=== PATIENT | female | born 1945 | race Caucasian/White ===

== ENCOUNTER 2016-10-22 16:45 | Inpatient (IN) | payer MEDICARE, OTHER ==
--- NOTE | ~2016-10-22 | CN ---
Consultation Report [facility] [address] [place]. [address] NAME: JOSE GOODEN : 47 STATUS : ADM IN PAT#: [id number] AGE: 71 ADM/REG DATE : 10/22/16 MR#: [id number] REPORT SERV DATE: 10/24/16 DICTATED BY: GERMAIN PIMENTEL DATE: 10/24/16 REPORT STATUS : Draft TRANSCRIBED BY: MODL DATE: 10/24/16 CONSULTATION NOTE DATE OF CONSULTATION: 10/24/2016 ATTENDING MAIL FORWARDING SYSTEM MARKUP CLERK: Vic Powell M.D. REASON FOR CONSULTATION: Recent non-ST elevation myocardial infarction, three-vessel coronary artery disease. CHIEF COMPLAINT: Left shoulder and back pain. HISTORY OF PRESENT ILLNESS: This is a 71-year-old female with known prior history of nonobstructive coronary artery disease, she has had two prior coronary catheterizations. She has family history of coronary artery disease, and she is a diabetic, controlled by diet. She reports that on the evening of last , when going to bed, she experienced onset of aching or dull discomfort in her left shoulder and back in the scapula area. She had radiation of pain into her left arm. This was associated with shortness of breath and some nausea. She did not vomit, did not experience any diaphoresis. She has had no paroxysmal nocturnal dyspnea. On Monday night, she had recurrence of her symptoms and this again resolved without intervention. The pain lasted approximately 40 to 50 minutes each time. On Monday morning, she again had recurrent pain and initially the pain resolved and then she had recurrence of pain later in the morning. At that time, she called her daughter and went to the emergency department. There she was found to have abnormal EKG, elevated troponin I of 0.06. She was referred to [facility] for further evaluation and treatment. Today, she underwent coronary arteriogram by Dr. Koenig that showed three-vessel flow- limiting coronary artery disease with wall motion abnormality and decreased left ventricular function, ejection fraction 40%. We were asked to see for possible coronary artery bypass grafting. She did experience some pain this morning just prior to her cath, this was relieved and she has had no recurrence since. Currently, she is pain free in the Cardiac Short Stay Unit. PRIOR MEDICAL HISTORY: Significant for hypertension, coronary artery disease, Parkinson disease, type 2 diabetes mellitus which is controlled by diet, lower extremity edema, prior MRSA infection. PRIOR SURGICAL HISTORY: Significant for hysterectomy. ALLERGIES: NONE KNOWN. MEDICATIONS AT HOME: Sinemet, Mirapex, atenolol, aspirin, amiloride/hydrochlorothiazide Consultation Report [facility] [address] [place]. [address] NAME: JOSE GOODEN : 47 STATUS : ADM IN PAT#: [id number] AGE: 71 ADM/REG DATE : 10/22/16 MR#: [id number] REPORT SERV DATE: 10/24/16 DICTATED BY: GERMAIN PIMENTEL DATE: 10/24/16 REPORT STATUS : Draft TRANSCRIBED BY: KARLOS DATE: 10/24/16 daily. 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 She denies the use of tobacco, alcohol, or illicit drugs. She does occasionally have a glass of wine. FAMILY HISTORY: Significant for first-degree family members with coronary artery disease and heart attack. REVIEW OF SYSTEMS: GENERAL: Negative for any recent weight loss, fevers, chills, or night sweats. She does report easy fatigability over the last one year. HEENT: Significant for cataracts, wearing glasses. She denies any difficulty with teeth with eating, chewing, or swallowing. No difficulty hearing. RESPIRATORY: Positive for shortness of breath. No breathlessness with exertion of walking. Denies any hemoptysis. Denies wheezes or chronic cough. No lung problems. CV: Positive for history of palpitations, previous coronary cath and recent chest pain. She denies any syncope or near syncope. She denies any heart failure. Denies abnormal heart rhythm or heart murmur. GI: Negative. : Negative. MUSCULOSKELETAL: Positive for pain in the right leg. Also walks with a cane. NEURO: Positive for Parkinson. Negative for stroke or TIA symptoms. Negative for symptoms of amaurosis fugax. HEME/ONC: Negative. Denies any easy bruising, free bleeding, or blood clots. No history of cancer. ENDOCRINE: Negative for thyroid problems, positive for diabetes which also occurs in her family. Otherwise, negative or as above. PHYSICAL EXAMINATION: GENERAL: She is a pleasant obese white female, in no acute distress. Her weight is 106.76 kg, height is 165.1 cm. VITAL SIGNS: Blood pressure is 147/67, temperature 97.6, pulse 81 and regular, respirations 18 regular and unlabored, saturations 95% on room air. HEENT: Normocephalic, atraumatic. Hair is graying. Pupils equal, round, reactive to light and accommodation. No xanthelasma. Sclerae clear, conjunctivae pink. Oral buccal mucosa pink and moist, teeth in good condition. NECK: Supple. No restricted range of motion, no carotid bruits, no jugular venous distention. CHEST: Clear to auscultation, no use of accessory muscles, no chest wall tenderness or deformity. BREASTS: Not examined. CV: Regular rate and rhythm without murmur or rub. She has palpable and symmetric central and peripheral pulses, no clubbing, no cyanosis, 1 to 2+ pitting edema of the lower extremities to the knees. She has no lower extremity varicosities seen. Consultation Report [address] [place]. [address] NAME: JOSE GOODEN : 47 STATUS : ADM IN [facility]#: [id number] AGE: 71 ADM/REG DATE : 10/22/16 MR#: [id number] REPORT SERV DATE: 10/24/16 DICTATED BY: GERMAIN PIMENTEL DATE: 10/24/16 REPORT STATUS : Draft TRANSCRIBED BY: KARLOS DATE: 10/24/16 ABDOMEN: Soft, obese, nontender with normoactive bowel sounds. No abnormal pulsations. No hepatosplenomegaly. /RECTAL: Declined. MUSCULOSKELETAL: No kyphoscoliosis. No asymmetry. NEURO: She is alert, oriented, and appropriate. No focal neurologic deficits, speech is clear and fluent. SKIN, HAIR, NAILS: No lesions, masses, or rashes. DATA: Her coronary arteriogram today showing diminished left ventricular function with ejection fraction 40%, three-vessel coronary artery disease as characterized in the cath report. Echocardiogram and carotid ultrasound are currently pending. Her EKG shows sinus rhythm with changes in the anteroseptal leads consistent with ischemia. Her lipid profile is unremarkable. Electrolytes: Sodium 136, potassium 3.9, chloride 103, CO2 of 28, BUN 28, creatinine 1.01. INR is 1. Troponin I was 0.06. Her CBC shows WBC is 8.2, hemoglobin 12.5 g, hematocrit 37.1%, platelets 229,000. ASSESSMENT: Recent acute anteroseptal myocardial infarction in a pleasant 71-year-old obese white female, diabetic. We talked with her and her family today about possible coronary artery bypass grafting, indications, benefits, risks, and usual perioperative course. We talked about pain, infection, pneumonia, damage to the kidneys including kidney failure and dialysis, damage to the liver or lungs, bleeding, need for blood or blood product transfusion, deep sternal infection, mediastinitis, heart attack, stroke, abnormal heart rhythm, and even . Using Society of Thoracic Surgeons database for risk characterization, her risk of mortality was estimated 1.755%, morbidity or mortality 14.917%, this was shared with the patient and family today. Currently, she is pain free. Our plan is to proceed with coronary artery bypass grafting later this admission, if she has recurrent pain unrelieved, then we will proceed with emergent coronary artery bypass grafting. We appreciate very much the opportunity to participate in this pleasant lady's care. ELLYN/KARLOS Germain Pimentel N.P. / [id number] CC: Annalee Barajas M.D.
--- NOTE | ~2016-10-22 | OP ---
Record Of [address] [place]. [address] NAME: JOSE GOODEN : 47 STATUS : DIS IN PAT#: [id number] AGE: 71 ADM/REG DATE : 10/22/16 MR#: [id number] REPORT SERV DATE: 11/04/16 DICTATED BY: JOSE EDUARDO DAVENPORT DATE: 11/04/16 REPORT STATUS : Draft TRANSCRIBED BY: MODL DATE: 11/04/16 DATE OF PROCEDURE: 10/25/2016 PREOPERATIVE DIAGNOSES: 1. Coronary artery disease with ijs-BN-azcibtyei myocardial infarction. 2. Unstable angina. 3. Type 2 vlu-qfuexwa-yjbljuwgt diabetes mellitus. 4. Morbid obesity. 5. Hypertension. 6. Hyperlipidemia. 7. Parkinson disease. 8. Acute systolic congestive heart failure (ejection fraction 40% on cardiac catheterization). POSTOPERATIVE DIAGNOSES: 1. Coronary artery disease with wvv-LT-hcrsqqphl myocardial infarction. 2. Unstable angina. 3. Type 2 epo-wzmbbyc-zstusqtlm diabetes mellitus. 4. Morbid obesity. 5. Hypertension. 6. Hyperlipidemia. 7. Parkinson disease. 8. Acute systolic congestive heart failure (ejection fraction 40% on cardiac catheterization). PROCEDURES PERFORMED: 1. Urgent coronary artery bypass grafting x3, left internal mammary artery placed to left anterior descending, reverse saphenous vein graft placed to the third obtuse marginal, reverse saphenous vein graft placed to the posterior descending artery. 2. Endoscopic vein harvest of the saphenous vein from the right thigh. 3. Transesophageal echocardiography. SURGEON: Jose Eduardo Davenport M.D. ASSISTANTS: Devika Pederson and Xavi Frias. ANESTHESIA: General with Dr. Thompson. ASPHALT HEATER OPERATOR: Vic Powell M.D. PRIMARY CARE: Ryan Madera M.D. INDICATIONS: This is a 71-year-old obese, diabetic female with previously known nonobstructive coronary artery disease. She had sudden onset of shoulder and scapular pain several days prior to her admission. These initially resolved and then repeated on the day of her admission. She came to the emergency room, was diagnosed with EKG changes, and was Record Of [address] [place]. [address] NAME: JOSE GOODEN : 47 STATUS : DIS IN PAT#: [id number] AGE: 71 ADM/REG DATE : 10/22/16 MR#: [id number] REPORT SERV DATE: 11/04/16 DICTATED BY: JOSE EDUARDO DAVENPORT DATE: 11/04/16 REPORT STATUS : Draft TRANSCRIBED BY: MODAinsley DATE: 11/04/16 admitted to the hospital with mildly elevated troponins and diagnosed with a non-ST- elevation myocardial infarction. She was treated initially medically and then underwent cardiac catheterization, which demonstrated significant three-vessel coronary artery disease and reduced ventricular function on cardiac catheterization. We were asked to see the patient for possible urgent revascularization secondary to recent non-ST elevation GA and unstable anginal symptoms. Preoperative STS risk prediction of mortality is 1.8% and morbidity mortality were 15%, and these were shared with the family. FINDINGS AT OPERATION: 1. Cross-clamp 57 minutes, total pump time 72 minutes. 2. The LAD was a 2 mm intramyocardial vessel, it was mildly diseased. A 2.5 mm WHALEN was anastomosed to it with good runoff. 3. The third obtuse marginal was 1.5 mm and heavily diseased. A 4.5 mm RSVG was anastomosed to it with fair runoff. 4. The posterior descending artery was 1.75 mm and heavily diseased. A 4.5 mm RSVG was anastomosed to it with good runoff. 5. The vein quality was good and all grafts had good Doppler signal at the end of the case. 6. GEOFF demonstrated improved left ventricular function at the conclusion of operation. There was no significant valvular pathology. 7. Morbid obesity made the operation challenging. PATHOLOGIC SPECIMENS: None. DESCRIPTION OF PROCEDURE: The patient was brought to the operating suite where general anesthesia was induced and airway was secured with an endotracheal tube. Lines were secured by Anesthesia and a Hidalgo catheter was placed. GEOFF probe was placed by Anesthesia with findings as discussed above. The patient's chest, abdomen, groin, and legs were prepped with Hibiclens and ChloraPrep and draped with Ioban and sterile sheets. Saphenous vein was harvested from the right thigh using endoscopic technique. Briefly, the vein was cut directly down upon through a 2 cm incision placed in the medial aspect of the right knee. Then, using VasoView trocars, the vessel was dissected from the surrounding subcutaneous tissue and fat. The side branches were identified, ligated, and divided with cautery. Once adequate length of vein had been dissected, a counter incision made up in the groin where the vein was ligated, divided, and brought through the knee incision. The vein quality was good. The leg was made hemostatic and closed in layers with absorbable suture and skin closed in subcuticular fashion. Next, a midline sternal incision was made and the sternum opened with a saw. The left hemithorax was elevated and the endothoracic fascia was incised. The side branch of the PRECIOUS were clipped and divided. Once the PRECIOUS was completely dissected, the patient was anticoagulated with heparin and chest tube placed in the left pleural cavity. The PRECIOUS was clipped and divided distally. There was good flow through the PRECIOUS and its pedicle was infiltrated with papaverine. Next, the Brian retractor was placed in the pericardium opened from the innominate vein at the diaphragm where it was T'd and tacked to the side of the chest wall. Cannulation Record Of [facility] [address] [facility] [place]. [address] NAME: JOSE GOODEN : 47 STATUS : DIS IN PAT#: [id number] AGE: 71 ADM/REG DATE : 10/22/16 MR#: [id number] REPORT SERV DATE: 11/04/16 DICTATED BY: JOSE EDUARDO DAVENPORT DATE: 11/04/16 REPORT STATUS : Draft TRANSCRIBED BY: KARLOS DATE: 11/04/16 pursestring sutures were placed. Cannulation was carried out in a routine manner. A retrograde cardioplegia cannula was placed in the coronary sinus. When all was in readiness, the patient was placed on cardiopulmonary bypass. The distal targets marked out on the heart as described in the findings. Then, a heart support was placed. The aorta was crossclamped and an initial dose of cold blood cardioplegia solution was given in a combination of antegrade and retrograde fashion, and then in a retrograde manner following proximal anastomoses. Following the first dose of cardioplegia, the heart was positioned for the obtuse marginal graft. Arteriotomy was made, the vein graft was trimmed and anastomosed it with 7-0 Prolene. The vein graft was measured to the left side of the ascending aorta where it was divided. We then positioned the heart for the PDA graft. Another arteriotomy was made and the vein graft was trimmed and anastomosed to this vessel with 7-0 Prolene. This vein graft was then measured to the right side of the ascending aorta where it was divided. Next, the proximal ends of these two vein grafts were anastomosed to 5 mm punch aortotomy with 6-0 Prolene. Another dose of cardioplegia was given and warming was begun. We then positioned the heart for the LAD graft. The LAD was intramyocardial. The LAD was opened in its mid vessel. The PRECIOUS was brought out of the left chest through a notch in the pericardium over the pulmonary artery. The PRECIOUS was opened and anastomosed to the LAD with running suture of 8-0 Prolene. The endothoracic fascia was tacked to the epicardium. The patient was placed in Trendelenburg and final dose of warm blood cardioplegia was given in a retrograde fashion. Ventricular and atrial pacing wires were placed. Following the last dose of cardioplegia and deairing of the aorta, the aortic cross clamp was removed. The distal and proximal anastomoses were inspected and made hemostatic. Doppler demonstrated good flow through the grafts. The heart resumed a normal sinus rhythm spontaneously and ventilations were begun. When the heart demonstrated good contractility, it was allowed to fill and eject. When deairing was completed, the patient was taken out of Trendelenburg and the ascending aortic vent removed and these pursestring sutures tied and reinforced. The patient was weaned from cardiopulmonary bypass with minimal inotropic support. The venous cannula was removed and these pursestring sutures tied. GEOFF examination demonstrated improved ventricular function. No valvular pathology was noted. Protamine was administered by Anesthesia, and following a period of hemodynamic stability, the aortic cannula was removed and these pursestring sutures tied and reinforced. The patient continued to do well and chest irrigated copiously with saline. Meticulous hemostasis was obtained. Hemasorb was placed along the cut edge of the sternum. Once hemostasis was assured, the pericardium was draped over the anterior surface of the heart and tacked into position. Doppler demonstrated good flow through the grafts following protamine administration. Then, chest tubes were placed and the sternum reapproximated with eight sternal wires. The clavipectoral fascia and linea alba closed with Stratafix as was subcutaneous tissue. The skin was closed in subcuticular fashion. Record Of Operation [facility] [address] [place]. [address] NAME: JOSE GOODEN : 47 STATUS : DIS IN PAT#: [id number] AGE: 71 ADM/REG DATE : 10/22/16 MR#: [id number] REPORT SERV DATE: 11/04/16 DICTATED BY: JOSE EDUARDO DAVENPORT DATE: 11/04/16 REPORT STATUS : Draft TRANSCRIBED BY: MODL DATE: 11/04/16 The patient tolerated the procedure well. There were no complications. Sponge and needle counts were correct. DISPOSITION: The patient was left intubated, sedated, and transported to the intensive care unit in a stable condition. RUIZ/KARLOS Jose Eduardo Davenport M.D. / [id number] CC: Annalee Barajas M.D.
--- NOTE | ~2016-10-22 | HP ---
History And Physical [place] [id number] [facility] [place]. [address] NAME: JOSE GOODEN : 47 STATUS : ADM IN [facility]#: [id number] AGE: 71 ADM/REG DATE : 10/22/16 MR#: [id number] REPORT SERV DATE: 10/23/16 DICTATED BY: VIC POWELL DATE: 10/22/16 REPORT STATUS : Draft TRANSCRIBED BY: MODL DATE: 10/22/16 DATE OF ADMISSION: 10/22/2016 ADMISSION REASON: Acute coronary syndrome/mvb-FP-tzhpqbvjm myocardial infarction. HISTORY OF PRESENT ILLNESS: Ms. Gooden is a 71-year-old female with hypertension and Parkinson disease who presented to the [facility] ER today for substernal chest pressure with symptoms of vague nausea and dyspnea. On arrival there, her EKG showed sinus rhythm with new inferolateral ST-segment depression and initial troponin was abnormal at 0.06. She was started on IV heparin and given aspirin, nitroglycerin, made symptom free. Symptoms persisted for approximately 45 minutes prior to arrival there. Before that, she has had 2 to 3 days of vague left shoulder/scapular pain that sound more musculoskeletal with exacerbation on certain movements. She is now resting comfortably. She has had no palpitations or syncope. She denies orthopnea/PND. She does have some chronic intermittent lower extremity edema. REVIEW OF SYSTEMS: Pertinent positives and negatives are as outlined above, all others negative. PAST MEDICAL HISTORY: 1. Hypertension. 2. Diabetes mellitus type 2, diet controlled. 3. Intermittent lower extremity edema. 4. Parkinson disease. CURRENT MEDICATIONS: 1. Sinemet as directed. 2. Mirapex 1 mg three times daily. 3. Atenolol 100 mg daily. 4. Aspirin 325 mg daily. 5. Amiloride/HCTZ 5/50 mg daily. ALLERGIES: NO KNOWN DRUG ALLERGIES. SOCIAL HISTORY: She is retired. Does not use tobacco products or consume alcohol. FAMILY HISTORY: No significant family history of premature CAD, cardiomyopathy, or sudden . PHYSICAL EXAMINATION: VITALS: Temp is afebrile, pulse is 70, respirations 16, and blood pressure is 150/90. MENTAL STATUS: Awake, alert, and oriented x3. PSYCH: Euthymic, normal affect. GENERAL: Well appearing and in no distress. HEENT: Sclerae anicteric, mucous membranes moist and without lesions. NECK: No jugular venous distention. No hepatojugular reflux, carotid upstrokes 2+ and History And Physical [address] [address] NAME: JOSE GOODEN : 47 STATUS : ADM IN PAT#: [id number] AGE: 71 ADM/REG DATE : 10/22/16 MR#: [id number] REPORT SERV DATE: 10/23/16 DICTATED BY: VIC POWELL. DATE: 10/22/16 REPORT STATUS : Draft TRANSCRIBED BY: KARLOS DATE: 10/22/16 symmetric, there are no carotid or subclavian bruit. LUNGS: Clear to auscultation without wheezes, crackles, or rales. CARDIOVASCULAR: Regular with normal S1 and S2, no murmurs, no S3 or S4, no parasternal lift, PMI is nondisplaced and nonsustained. ABDOMEN: Soft and nontender. Bowel sounds positive and normoactive. No hepatomegaly, no masses, no abdominal bruit. PULSES: Radial and dorsalis pedis pulses 2+ and symmetric. EXTREMITIES: Warm and without edema. SKIN: No clubbing or cyanosis, no rashes or lesions. IMPRESSION: 1. Non-ST segment elevation myocardial infarction. 2. Hypertension. 3. Diabetes mellitus type 2. 4. Lower extremity edema. 5. Parkinson disease. PLAN: Heparin and aspirin with medical therapy including beta brown, statin, nitroglycerin. Check serial troponins. Check a.m. ECG and a.m. labs. Anticipate coronary angiography with possible PCI on Monday. We will prescribe sliding scale insulin and IV hydralazine p.r.n. for hypertension. AEA/MODL Vic Powell M.D. / [id number] CC: Vic Powell M.D.
--- NOTE | ~2016-10-22 | DS ---
Discharge Summary [facility] [address] [place]. [address] NAME: JOSE GOODEN : 47 STATUS : DIS IN PAT#: [id number] AGE: 71 ADM/REG DATE : 10/22/16 MR#: [id number] REPORT SERV DATE: 11/10/16 DICTATED BY: JOSE EDUARDO DAVENPORT DATE: 11/09/16 REPORT STATUS : Draft TRANSCRIBED BY: KARLOS DATE: 11/09/16 Data Collection from hospitalization DISCHARGE DIAGNOSES: 1. Non-ST elevation myocardial infarction. 2. Coronary artery disease, status post coronary artery bypass grafting. 3. Parkinson disease. 4. Hypertension. 5. Hyperlipidemia. 6. Diabetes mellitus. 7. Previous history of MRSA infection. CONSULTATIONS: 1. Ivonne Moreno NP. 2. Vic Powell M.D. PROCEDURES PERFORMED: 1. Cardiac catheterization on 10/24/2016. 2. Urgent coronary artery bypass grafting x3 with left internal mammary artery to the left anterior descending artery, reverse saphenous vein graft placed to the third obtuse marginal, reverse saphenous vein graft placed to the posterior descending artery; endoscopic vein harvest of the saphenous vein from the right thigh; and transesophageal echocardiography on 10/25/2016. 3. Carotid blood flow study on 10/24/2016. MEDICATIONS: Vitamin C 1000 mg twice a day, aspirin 325 mg as needed, Lipitor 40 mg at bedtime, Sinemet CR one tablet three times a day, Plavix 75 mg daily, Lasix 40 mg at 8:00 a.m. daily as instructed, NovoLog injection insulin as instructed, Lopressor 25 mg every 12 hours, potassium chloride SR 20 mEq daily, Mirapex 1 mg three times a day, Senokot two tablets twice a day, Orazinc 220 mg daily, and lisinopril 2.5 mg at bedtime. CONDITION AT DISCHARGE: Stable. DISPOSITION: The patient was discharged to [facility] with diet and activities as instructed. She would follow up with Germain Justin on 12/29/[address] Vic Powell on 12/06/2016. HOSPITAL COURSE: This is a 71-year-old female who has hypertension and Parkinson disease. She presented to the [facility] Emergency Room on the day of this admission with substernal chest pressure with symptoms of vague nausea and dyspnea. Upon arrival there, her EKG showed sinus rhythm with new inferolateral ST-segment depression and initial troponin was abnormal at 0.06. She was started on IV heparin and given aspirin and nitroglycerin and was made symptom free. Her symptoms persisted for approximately 45 minutes prior to arrival there, before that, she has had two to three days of vague left shoulder/scapular pain that sounded more musculoskeletal with exacerbation on certain movements. She was now resting comfortably. She had no palpitations or syncope. She does have some chronic intermittent lower extremity edema. She was felt to have had a non-ST- segment elevation myocardial infarction. It was felt that she would need to undergo cardiac Discharge Summary [address] [place]. [address] NAME: JOSE GOODEN : 47 STATUS : DIS IN [facility]#: [id number] AGE: 71 ADM/REG DATE : 10/22/16 MR#: [id number] REPORT SERV DATE: 11/10/16 DICTATED BY: JOSE EDUARDO DAVENPORT DATE: 11/09/16 REPORT STATUS : Draft TRANSCRIBED BY: KARLOS DATE: 11/09/16 catheterization and possible percutaneous coronary intervention. She was admitted here at this time for further evaluation and treatment. Upon admission, she was seen by Dr. Vic Powell. Plans were being made to proceed with coronary angiography and possible percutaneous coronary intervention. The patient has a history of type 2 diabetes mellitus, Parkinson disease, hypertension, and chronic lower extremity edema. Heparin and aspirin were started with medical therapy including beta- brown, statin, and nitroglycerin. Serial troponins were going to be checked as well as a morning ECG and a.m. labs. Sliding scale insulin was going to be started as well as IV hydralazine as needed for hypertension. The following day, she seemed to be doing well. She had no chest pain or shortness of breath. She had 1+ edema. Medical therapy continued. Statin agent was changed to pravastatin. She was going to be held n.p.o. after midnight. On 10/24/2016, she complained of muscle cramps and spasms. She had no shortness of breath or chest pain. A dose of Lasix was given. Flexeril was given for muscle spasms. 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 Maninder Koenig. She tolerated this well, and there were no complications. She was seen by Germain Justin regarding recent ayh-CW-nfrprsrfe myocardial infarction and three-vessel coronary artery disease. Her coronary arteriogram had shown three-vessel flow-limiting coronary artery disease with wall motion abnormality and decreased left ventricular function. Ejection fraction was 40%. It was felt that she would need to undergo coronary artery bypass grafting. A carotid blood flow study was performed. On 10/25/2016, she was taken to the operating room where she underwent the above-mentioned procedure. She tolerated this well, and there were no complications. On postop day #1, she had decreased breath sounds in her lung bases. She developed some leukocytosis as expected. Oral liquids were increased. INR level was 1.2. Troponin was 11.2. White blood cell count was 20. The patient says that her diabetes is diet controlled at home. She does not take any oral medications or insulin for her diabetes. Hemoglobin A1c was going to be checked. Her last hemoglobin A1c was 6.7. The insulin drip would be discontinued two hours after initiating Levemir. She would be placed on level 2 sliding scale insulin with hypoglycemic protocol. Sinemet and Mirapex were continued. The patient was also on aspirin, Cordarone, Lopressor, Plavix, and Lasix. Lipitor was continued for hypercholesterolemia. Medical therapy continued. Diuresis was continued. She was evaluated by Physical Therapy. On 10/27/2016, her abdomen was soft and nontender. Pacing wires and chest tubes were going to be removed. She was encouraged to mobilize. Diuresis continued. White count was 23.5. She was up sitting in a chair. She was beginning to participate with Physical Therapy. Metoprolol was increased. Over the next couple of days, she still felt weak. She had 1 to 2+ pitting edema from her feet to her knees. Her incisions looked okay. She was beginning to ambulate in the halls with a walker. Discharge planning was performed. Lasix was decreased. She underwent diabetes education. On 10/29/2016, she continued to progress. Discharge instructions were given. Due to her improved and stable condition, she was discharged to [facility] with the above- stated instructions. Information collected by: Yee Lowe I submit the above information as my discharge summary. Discharge Summary [facility] [address] [place]. [address] NAME: JOSE GOODEN : 47 STATUS : DIS IN PAT#: [id number] AGE: 71 ADM/REG DATE : 10/22/16 MR#: [id number] REPORT SERV DATE: 11/10/16 DICTATED BY: JOSE EDUARDO DAVENPORT DATE: 11/09/16 REPORT STATUS : Draft TRANSCRIBED BY: KARLOS DATE: 11/09/16 TG/KARLOS Jose Eduardo Davenport M.D. / [id number] CC: Annalee Barajas M.D. [facility]
--- NOTE | ~2016-10-22 | CN ---
Consultation Report [facility] [address] [place]. [address] NAME: JOSE GOODEN : 47 STATUS : ADM IN PAT#: [id number] AGE: 71 ADM/REG DATE : 10/22/16 MR#: [id number] REPORT SERV DATE: 10/27/16 DICTATED BY: IVONNE NAVA DATE: 10/26/16 REPORT STATUS : Draft TRANSCRIBED BY: MODL DATE: 10/26/16 CONSULTATION DATE OF CONSULTATION: 10/26/2016 REASON FOR CONSULTATION: Consulted for diabetes management. IDENTIFYING DATA: 1. Neurologist, Jay Cano M.D. 2. Electrical Prospecting Observer, Vic Powell M.D. 3. Cardiovascular surgeon, Rajat Davenport M.D. 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 She also had radiation into her left arm. This was associated with shortness of breath and some nausea. Upon admission to the [facility], she was found to have an abnormal EKG and elevated troponin I of 0.06. She underwent coronary arteriogram by Dr. Koenig that showed a three-vessel flow-limiting coronary artery disease with wall motion abnormality and a decreased left ventricular function with an EF of 40%. She is presently status post CABG x3 with WHALEN on 10/25/[address] Davenport. The hospitalist group has been consulted to help manage her blood sugars while she is inpatient status. The patient's history was obtained through careful interview with the patient and her family as well as review of [employer] and [employer]. PAST MEDICAL HISTORY: 1. Parkinson's disease. 2. Hypertension. 3. High cholesterol. 4. Irregular heart rhythm. 5. Diabetes type 2, diet controlled. 6. MRSA infection of the leg and groin area. 7. Intermittent lower extremity edema. 8. The patient's son states she has history of night terrors. HOME MEDICATIONS: 1. Amiloride/hydrochlorothiazide 5/50 tablet one tab p.o. daily. 2. Aspirin 325 mg p.o. 3. Tenormin 100 mg p.o. daily. 4. Sinemet CR 50/200 mg tablet one tab p.o. three times daily. 5. Mirapex 1 mg p.o. three times daily. Consultation Report [place] [address] [place]. [address] NAME: JOSE GOODEN : 47 STATUS : ADM IN PAT#: [id number] AGE: 71 ADM/REG DATE : 10/22/16 MR#: [id number] REPORT SERV DATE: 10/27/16 DICTATED BY: IVONNE NAVA DATE: 10/26/16 REPORT STATUS : Draft TRANSCRIBED BY: KARLOS DATE: 10/26/16 ALLERGIES: NO KNOWN ALLERGIES. SOCIAL HISTORY: The patient is . Has grown children. She lives with her son and [id number] at a single-level home. She utilizes a cane occasionally for ambulation. Previously worked at [employer] in [employer] and also in [employer]. She does not smoke or use illicit medications and does have an occasional glass of wine. FAMILY HISTORY: Positive in first-degree relatives of coronary artery disease and [place] on her father's side. Her mother's side is positive in relatives for CVA. Her mother had Parkinson's disease and her father had coronary artery disease. SURGICAL HISTORY: 1. Cyst removal approximately 50 years ago. 2. Cholecystectomy. 3. Hysterectomy approximately 34 years ago. 4. Cardiac [place] [address] Rosemarie Snider. REVIEW OF SYSTEMS: Are negative other than what is included in HPI. The patient is alert. She is confused at the present time. No complaints of shortness of breath. No nausea or vomiting. No abdominal pain. No chest pain. No fever. Displays no agitation. Her family is at bedside. PHYSICAL EXAMINATION: VITAL SIGNS: From today, blood pressure 128/58, respiratory rate 16, heart rate 85, temperature 97.8, O2 saturation 94% on 2 L nasal cannula. GENERAL: This is a very pleasant, but scared-appearing, and relates that she is scared presently, female. She is resting in bed. NEURO: Her head is atraumatic, normocephalic. She is alert. Can answer questions appropriately, but is confused. Her cranial nerves are intact. Her mood is pleasant and appropriate, but she is tearful at times. NECK: Supple. Trachea is midline. No JVD noted. No obvious thyromegaly or lymphadenopathy. She does have an old dressing, where her right IJ catheter previously was inserted. EENT: Her sclerae are nonicteric. Pupils are equal and reactive to light. Her nares are patent. Mucous membranes moist. Tongue is midline without deviation. Soft palate rises equally with phonation. CHEST: The patient has a midline sternotomy with dressing intact. Her chest tube is wide to atrium. Chest tube device at bedside at -20 cm of suction. She does have pacing wires taped beneath dressing. LUNGS: Clear to auscultation bilaterally. She has normal respiratory effort. She is diminished in the bases. She has no increased work of breathing with conversation. She is encouraged to use incentive spirometer, as her x-ray from today has noted low lung volumes and atelectasis. CARDIOVASCULAR: S1, S2. She is on telemetry. Her rhythm is regular. Noted a sinus rhythm Consultation Report [address] [place]. [address] NAME: JOSE GOODEN : 47 STATUS : ADM IN [facility]#: [id number] AGE: 71 ADM/REG DATE : 10/22/16 MR#: [id number] REPORT SERV DATE: 10/27/16 DICTATED BY: IVONNE NAVA DATE: 10/26/16 REPORT STATUS : Draft TRANSCRIBED BY: KARLOS DATE: 10/26/16 with a rate of 92. ABDOMEN: Soft, nontender. She has active bowel sounds. No palpable organomegaly. Last bowel movement was noted on 10/24/2016. EXTREMITIES: Normal distal pulses. No calf tenderness. She does have bilateral lower extremity edema. SKIN: Warm and dry. No unusual rashes or lesions. Normal color and turgor for age. PSYCH: The patient is slightly anxious, tearful. She is cooperative and nervous. She is asking her family not to leave her presently. SURGICAL WOUND SITE: Her dressings are clean, dry, and intact. She does have an Buddy wrap to her right lower extremity and she has a MUKUL hose to her left lower extremity. LABORATORY DATA: Sodium 149, potassium 4.4, chloride 115, BUN 19, creatinine 1.12, GFR 58, glucose 101, calcium 9.0, magnesium 2.2. White blood cell 20.0, hemoglobin 11.8, hematocrit 35.3, platelets 183. INR 1.2. Troponin 11.20 postsurgery for CABG. On 10/26/2016, she had a chest x-ray that showed low lung volumes bilaterally, perihilar and bibasilar atelectasis. Mild venous congestion, status post CABG. Prior to her open heart surgery, she had a coronary arteriogram with Dr. Koenig that showed a three-vessel coronary artery disease with wall motion abnormality and decreased left ventricular function with an EF of 40%. ASSESSMENT/PLAN: 1. Diabetes type 2. The patient states that she is on a diet-controlled regimen at home for her diabetes. She is not taking any p.o. medications nor insulin for diabetes. Her blood sugar, she states, usually runs between 115 to 125 daily when she checks her blood sugar in the morning at home. Her hemoglobin A1c in hospitalization at present time is 6.7. She is on an insulin drip. She is 36 units in the last 12 hours. Her present blood sugar is 137. Her average blood sugar on 3 units an hour has been 110 to 130. We will utilize a community educator for education and appropriate monitoring for blood glucose at home. She is already on an 1800-calorie cardiac diet. We will discontinue the insulin drip two hours after initiating Levemir 10 mg subcu and with her eating dinner presently, she will be placed on a sliding scale level 2 with a hypoglycemic protocol. We will also check a fingerstick blood sugar at 2 a.m. x1. We are going to be somewhat conservative with this lady on her blood sugars presently. She is eating, but not a lot and she has not been on any medications nor insulin at home. Staff can call if her blood sugars become elevated and we can tweak her blood sugar regimen. 2. Parkinson's disease. Aware. She is on Sinemet daily as well as Mirapex, which is continued. 3. Hypertension. She is status post CABG x3 with use of WHALEN. Her EF is noted at 40% and she has had a previous cardiac [place] [address] Rosemarie Snider. Medications continued and managed per Cardiology, for which she is on aspirin, Cordarone, lopressor, Plavix, and Lasix. 4. Hypercholesterolemia. Aware. She is on a daily regimen of Lipitor. 5. Labs in the a.m. are BMP, CBC, magnesium, and she has a PA and lateral chest x-ray already ordered. Consultation Report [place] [address] [place]. [address] NAME: JOSE GOODEN : 47 STATUS : ADM IN PAT#: [id number] AGE: 71 ADM/REG DATE : 10/22/16 MR#: [id number] REPORT SERV DATE: 10/27/16 DICTATED BY: IVONNE NAVA DATE: 10/26/16 REPORT STATUS : Draft TRANSCRIBED BY: KARLOS DATE: 10/26/16 The hospitalist group would like to thank you for this consultation. Please contact us if we can be of any further assistance. MARY Ivonne Nava NP / [phone] CC: Annalee Barajas M.D.
[~2016-10-22 16:45] MED LIST: AMILOR/HCTZ1 TAB PO; ASA5GR PO; ATEN100 PO; MIRAPEX1 MG PO; SIN-CR PO
[2016-10-22 21:18] LABS: BASOPHILS 0.5 %; BASOPHILS ABSOLUTE 0.04 10/3/uL (0.0-0.16); EOSINOPHILS 1.2 %; EOSINOPHILS ABSOLUTE 0.11 10/3/uL (0.0-0.53); HEMOGLOBIN 12.7 g/dL (12.0-16.0); IMMATURE GRANULOCYTES 0.2 %; IMMATURE GRANULOCYTES ABSOLUTE 0.02 10/3/uL (0.0-0.11); LYMPHOCYTES 31.1 %; LYMPHOCYTES ABSOLUTE 2.76 10/3/uL (0.67-4.30); MEAN CORPUS HGB CONC 33.5 g/dL (32.0-36.0); MEAN CORPUSCULAR HEMOGLOB 28.9 pg (26.0-34.0); MEAN CORPUSCULAR VOLUME 86.1 fL (80-100); MEAN PLATELET VOLUME 10.7 fL (9.2-13.0); MONOCYTES 8.4 %; MONOCYTES ABSOLUTE 0.75 10/3/uL (0.21-1.20); NEUTROPHILS 58.6 %; PLATELET COUNT 233 10/3/uL (150-400); RBC DISTRIBUTION WIDTH 13.6 % (12.0-16.0); WHITE BLOOD CELLS 8.9 10/3/uL (4.5-10.5)
[2016-10-22 21:21] LABS: HEMATOCRIT 37.9 % (36.0-48.0); MANUAL DIFF NO %
[2016-10-22 21:29] LABS: PARTIAL THROMBO TIME 47.3 SEC (22.5-37.2)
[2016-10-22 21:36] LABS: BUN (BLOOD UREA NITROGEN) 22 MG/DL (6-23); CALCIUM, SERUM 8.8 MG/DL (8.5-10.4); CHLORIDE, SERUM 105 MMOL/L (96-112); CO2 (CARBON DIOXIDE) 25 MMOL/L (24-34); CREATININE 1.06 MG/DL (0.55-1.02); GFR AFRICAN AMERICAN 62 ML/MIN (>=60); GFR NON AFRICAN AMERICAN 53 ML/MIN (>=60); GLUCOSE, SERUM 152 MG/DL (60-99); POTASSIUM, SERUM 3.8 MMOL/L (3.5-5.3); SODIUM, SERUM 139 MMOL/L (135-148)
[2016-10-22 21:37] LABS: TROPONIN I 5.81 NG/ML (<0.05)
[2016-10-22 21:55] LABS: PROTIME (NOT ORD) 13.5 SEC (12.0-14.5)
[2016-10-23 06:34] LABS: BASOPHILS 0.4 %; BASOPHILS ABSOLUTE 0.03 10/3/uL (0.0-0.16); EOSINOPHILS 2.3 %; EOSINOPHILS ABSOLUTE 0.18 10/3/uL (0.0-0.53); HEMATOCRIT 37.3 % (36.0-48.0); HEMOGLOBIN 12.4 g/dL (12.0-16.0); IMMATURE GRANULOCYTES 0.3 %; IMMATURE GRANULOCYTES ABSOLUTE 0.02 10/3/uL (0.0-0.11); LYMPHOCYTES 32.7 %; LYMPHOCYTES ABSOLUTE 2.53 10/3/uL (0.67-4.30); MEAN CORPUS HGB CONC 33.2 g/dL (32.0-36.0); MEAN CORPUSCULAR HEMOGLOB 29.1 pg (26.0-34.0); MEAN CORPUSCULAR VOLUME 87.6 fL (80-100); MEAN PLATELET VOLUME 10.6 fL (9.2-13.0); MONOCYTES 8.8 %; MONOCYTES ABSOLUTE 0.68 10/3/uL (0.21-1.20); NEUTROPHILS 55.5 %; PLATELET COUNT 198 10/3/uL (150-400); RBC DISTRIBUTION WIDTH 13.7 % (12.0-16.0); RED CELL COUNT 4.26 10/6/uL (4.0-5.6); WHITE BLOOD CELLS 7.7 10/3/uL (4.5-10.5)
[2016-10-23 06:37] LABS: MANUAL DIFF NO %
[2016-10-23 06:39] LABS: INTERNATIONAL NORMAL RATI 1.1 UNITS (-); PROTIME (NOT ORD) 13.8 SEC (12.0-14.5)
[2016-10-23 06:41] LABS: PARTIAL THROMBO TIME 91.1 SEC (22.5-37.2)
[2016-10-23 06:50] LABS: BUN (BLOOD UREA NITROGEN) 22 MG/DL (6-23); CALCIUM, SERUM 8.9 MG/DL (8.5-10.4); CHLORIDE, SERUM 105 MMOL/L (96-112); CO2 (CARBON DIOXIDE) 27 MMOL/L (24-34); CREATININE 0.93 MG/DL (0.55-1.02); GFR AFRICAN AMERICAN 72 ML/MIN (>=60); GFR NON AFRICAN AMERICAN 62 ML/MIN (>=60); HDL CHOLESTEROL 38 MG/DL (> 49); SGPT(ALT) 11 U/L (5-65); SODIUM, SERUM 139 MMOL/L (135-148); TRIGLYCERIDE 150 MG/DL (< 150)
[2016-10-23 06:54] LABS: CHOLESTEROL 153 MG/DL (< 200); GLUCOSE, SERUM 115 MG/DL (60-99); LDL CHOLESTEROL 85 MG/DL (< 130); NON-HDL CHOLESTEROL 115 MG/DL (< 160)
[2016-10-23 10:14] LABS: ASCORBIC ACID (UR NOT ORDER) NEG (NEG); BILIRUBIN, URINE NEGATIVE (NEG); KETONE, URINE NEGATIVE (NEG); LEUKOCYTE ESTERASE(NOT OR NEG (NEG); WBC (NOT ORDERED) (RFLEX) < 1 (0-5)
[2016-10-24 00:57] LABS: BASOPHILS 0.7 %; BASOPHILS ABSOLUTE 0.06 10/3/uL (0.0-0.16); EOSINOPHILS 1.8 %; EOSINOPHILS ABSOLUTE 0.15 10/3/uL (0.0-0.53); HEMATOCRIT 37.1 % (36.0-48.0); HEMATOCRIT 37.9 % (36.0-48.0); HEMOGLOBIN 12.5 g/dL (12.0-16.0); HEMOGLOBIN 12.7 g/dL (12.0-16.0); IMMATURE GRANULOCYTES 0.1 %; IMMATURE GRANULOCYTES ABSOLUTE 0.01 10/3/uL (0.0-0.11); LYMPHOCYTES 30.5 %; MEAN CORPUS HGB CONC 33.7 g/dL (32.0-36.0); MEAN CORPUSCULAR VOLUME 86.1 fL (80-100); MEAN PLATELET VOLUME 10.3 fL (9.2-13.0); MONOCYTES 10.1 %; MONOCYTES ABSOLUTE 0.83 10/3/uL (0.21-1.20); NEUTROPHILS 56.8 %; NEUTROPHILS ABSOLUTE 4.64 10/3/uL (2.02-8.40); PLATELET COUNT 229 10/3/uL (150-400); RBC DISTRIBUTION WIDTH 13.6 % (12.0-16.0); RED CELL COUNT 4.31 10/6/uL (4.0-5.6); WHITE BLOOD CELLS 8.2 10/3/uL (4.5-10.5)
[2016-10-24 00:58] LABS: MANUAL DIFF NO %
[2016-10-24 01:05] LABS: PROTIME (NOT ORD) 13.2 SEC (12.0-14.5)
[2016-10-24 01:06] LABS: PARTIAL THROMBO TIME 94.7 SEC (22.5-37.2)
[2016-10-24 01:10] LABS: CHLORIDE, SERUM 103 MMOL/L (96-112); CHOL/HDL RATIO(NOT ORDER) 3.7 (0-5); CHOLESTEROL 162 MG/DL (< 200); CO2 (CARBON DIOXIDE) 28 MMOL/L (24-34); CREATININE 1.01 MG/DL (0.55-1.02); GFR AFRICAN AMERICAN 65 ML/MIN (>=60); GFR NON AFRICAN AMERICAN 56 ML/MIN (>=60); HDL CHOLESTEROL 44 MG/DL (> 49); LDL CHOLESTEROL 82 MG/DL (< 130); NON-HDL CHOLESTEROL 118 MG/DL (< 160); POTASSIUM, SERUM 3.9 MMOL/L (3.5-5.3); SODIUM, SERUM 136 MMOL/L (135-148); TRIGLYCERIDE 182 MG/DL (< 150)
[2016-10-24 01:11] LABS: BUN (BLOOD UREA NITROGEN) 28 MG/DL (6-23); GLUCOSE, SERUM 145 MG/DL (60-99)
[2016-10-25 02:31] LABS: BASOPHILS 0.7 %; BASOPHILS ABSOLUTE 0.05 10/3/uL (0.0-0.16); EOSINOPHILS ABSOLUTE 0.22 10/3/uL (0.0-0.53); HEMATOCRIT 37.7 % (36.0-48.0); HEMOGLOBIN 12.5 g/dL (12.0-16.0); IMMATURE GRANULOCYTES 0.1 %; IMMATURE GRANULOCYTES ABSOLUTE 0.01 10/3/uL (0.0-0.11); LYMPHOCYTES 30.7 %; LYMPHOCYTES ABSOLUTE 2.22 10/3/uL (0.67-4.30); MANUAL DIFF NO %; MEAN CORPUS HGB CONC 33.2 g/dL (32.0-36.0); MEAN CORPUSCULAR HEMOGLOB 29.3 pg (26.0-34.0); MEAN CORPUSCULAR VOLUME 88.3 fL (80-100); MEAN PLATELET VOLUME 10.4 fL (9.2-13.0); MONOCYTES ABSOLUTE 0.72 10/3/uL (0.21-1.20); NEUTROPHILS 55.5 %; NEUTROPHILS ABSOLUTE 4.01 10/3/uL (2.02-8.40); PLATELET COUNT 215 10/3/uL (150-400); RBC DISTRIBUTION WIDTH 13.4 % (12.0-16.0); RED CELL COUNT 4.27 10/6/uL (4.0-5.6); WHITE BLOOD CELLS 7.2 10/3/uL (4.5-10.5)
[2016-10-25 02:46] LABS: A/G RATIO 0.8 (0.7-1.9); CALCIUM, SERUM 8.7 MG/DL (8.5-10.4); CHLORIDE, SERUM 107 MMOL/L (96-112); CO2 (CARBON DIOXIDE) 26 MMOL/L (24-34); CREATININE 0.91 MG/DL (0.55-1.02); GFR AFRICAN AMERICAN 74 ML/MIN (>=60); GFR NON AFRICAN AMERICAN 64 ML/MIN (>=60); GLOBULIN 3.7 G/DL (2.5-4.1); GLUCOSE, SERUM 121 MG/DL (60-99); POTASSIUM, SERUM 4.1 MMOL/L (3.5-5.3); SGOT(AST) 33 U/L (5-40); SGPT(ALT) 17 U/L (5-65); TOTAL BILIRUBIN 0.3 MG/DL (0-1.2); TOTAL PROTEIN 6.7 G/DL (6.0-8.5)
[2016-10-25 02:47] LABS: ALKALINE PHOSPHATASE 110 U/L (45-117); BUN (BLOOD UREA NITROGEN) 20 MG/DL (6-23); SODIUM, SERUM 145 MMOL/L (135-148)
[2016-10-25 02:57] LABS: INTERNATIONAL NORMAL RATI 1.1 UNITS (-); PROTIME (NOT ORD) 13.6 SEC (12.0-14.5)
[2016-10-25 17:07] LABS: BE (BASE EXCESS) -2.9 MEQ/L (0 +/- 2.5); CARBOXYHEMOGLOBIN 0.3 % (0-3); HCO3 (ACTUAL BICARBONATE) 20.9 MEQ/L (23-27); HEMOBLOGIN CONTENT 12.1 G/DL (12-16); INSTRUMENT SERIAL # 11843; METHEMOGLOBIN 0.3 % (0-3); MODE SIMV; O2 CONTENT 17.3 VOL% (18-24); OPERATOR ID 18642; PCO2 (CO2 TENSION) 33 MMHG (35-45); PO2 (O2 TENSION) 254 MMHG (79-93); PRESSURE SUPPORT 0 cm.H2O; SAMPLE Arterial; TIDAL VOLUME 700 ML; pH 7.42 (7.37-7.43)
[2016-10-25 17:28] LABS: HEMOGLOBIN 11.3 g/dL (12.0-16.0); PLATELET COUNT 160 10/3/uL (150-400)
[2016-10-25 17:29] LABS: HEMATOCRIT 33.2 % (36.0-48.0)
[2016-10-25 17:36] LABS: INTERNATIONAL NORMAL RATI 1.3 UNITS (-); PARTIAL THROMBO TIME 35.1 SEC (22.5-37.2)
[2016-10-25 17:37] LABS: PROTIME (NOT ORD) 16.2 SEC (12.0-14.5)
[2016-10-25 18:06] LABS: CHLORIDE, SERUM 112 MMOL/L (96-112); CO2 (CARBON DIOXIDE) 22 MMOL/L (24-34); CREATININE 1.03 MG/DL (0.55-1.02); GFR AFRICAN AMERICAN 64 ML/MIN (>=60); GFR NON AFRICAN AMERICAN 55 ML/MIN (>=60); POTASSIUM, SERUM 4.5 MMOL/L (3.5-5.3); SODIUM, SERUM 145 MMOL/L (135-148)
[2016-10-25 18:07] LABS: BUN (BLOOD UREA NITROGEN) 16 MG/DL (6-23); CALCIUM, SERUM 9.7 MG/DL (8.5-10.4); GLUCOSE, SERUM 162 MG/DL (60-99)
[2016-10-25 23:25] LABS: HEMATOCRIT 37.2 % (36.0-48.0); HEMOGLOBIN 12.6 g/dL (12.0-16.0)
[2016-10-25 23:38] LABS: BUN (BLOOD UREA NITROGEN) 18 MG/DL (6-23); CALCIUM, SERUM 9.1 MG/DL (8.5-10.4); CHLORIDE, SERUM 115 MMOL/L (96-112); CO2 (CARBON DIOXIDE) 23 MMOL/L (24-34); CREATININE 1.14 MG/DL (0.55-1.02); GFR AFRICAN AMERICAN 56 ML/MIN (>=60); GFR NON AFRICAN AMERICAN 49 ML/MIN (>=60); GLUCOSE, SERUM 116 MG/DL (60-99); POTASSIUM, SERUM 4.3 MMOL/L (3.5-5.3); SODIUM, SERUM 145 MMOL/L (135-148)
[2016-10-25 23:46] LABS: BE (BASE EXCESS) -2.6 MEQ/L (0 +/- 2.5); CARBOXYHEMOGLOBIN 0.2 % (0-3); DEVICE NC; HCO3 (ACTUAL BICARBONATE) 21.4 MEQ/L (23-27); HEMOBLOGIN CONTENT 13.3 G/DL (12-16); INSTRUMENT SERIAL # 11843; METHEMOGLOBIN 0.4 % (0-3); OPERATOR ID 16469; PCO2 (CO2 TENSION) 35 MMHG (35-45); PO2 (O2 TENSION) 86 MMHG (79-93); SAMPLE Arterial; pH 7.41 (7.37-7.43)
[2016-10-26 02:52] LABS: BASOPHILS 0 %; EOSINOPHILS 0 %; HEMATOCRIT 35.3 % (36.0-48.0); HEMOGLOBIN 11.8 g/dL (12.0-16.0); IMMATURE GRANULOCYTES 0.3 %; IMMATURE GRANULOCYTES ABSOLUTE 0.06 10/3/uL (0.0-0.11); LYMPHOCYTES 3.5 %; MEAN CORPUS HGB CONC 33.4 g/dL (32.0-36.0); MEAN CORPUSCULAR HEMOGLOB 29.3 pg (26.0-34.0); MEAN CORPUSCULAR VOLUME 87.6 fL (80-100); MEAN PLATELET VOLUME 10.8 fL (9.2-13.0); MONOCYTES 2.2 %; MONOCYTES ABSOLUTE 0.43 10/3/uL (0.21-1.20); PLATELET COUNT 183 10/3/uL (150-400); RBC DISTRIBUTION WIDTH 13.7 % (12.0-16.0); RED CELL COUNT 4.03 10/6/uL (4.0-5.6)
[2016-10-26 02:53] LABS: MANUAL DIFF NO %
[2016-10-26 03:05] LABS: BUN (BLOOD UREA NITROGEN) 19 MG/DL (6-23); CHLORIDE, SERUM 115 MMOL/L (96-112); CO2 (CARBON DIOXIDE) 23 MMOL/L (24-34); CREATININE 1.12 MG/DL (0.55-1.02); GFR AFRICAN AMERICAN 58 ML/MIN (>=60); GFR NON AFRICAN AMERICAN 50 ML/MIN (>=60); GLUCOSE, SERUM 101 MG/DL (60-99); POTASSIUM, SERUM 4.4 MMOL/L (3.5-5.3); SODIUM, SERUM 149 MMOL/L (135-148)
[2016-10-26 03:44] LABS: INTERNATIONAL NORMAL RATI 1.2 UNITS (-)
[2016-10-27 04:20] LABS: BASOPHILS 0 %; BASOPHILS ABSOLUTE 0.01 10/3/uL (0.0-0.16); EOSINOPHILS 0 %; HEMATOCRIT 32.8 % (36.0-48.0); HEMOGLOBIN 10.5 g/dL (12.0-16.0); IMMATURE GRANULOCYTES 0.3 %; IMMATURE GRANULOCYTES ABSOLUTE 0.08 10/3/uL (0.0-0.11); LYMPHOCYTES 7.9 %; LYMPHOCYTES ABSOLUTE 1.86 10/3/uL (0.67-4.30); MEAN CORPUSCULAR HEMOGLOB 28.5 pg (26.0-34.0); MEAN CORPUSCULAR VOLUME 88.9 fL (80-100); MEAN PLATELET VOLUME 10.8 fL (9.2-13.0); MONOCYTES 8.1 %; NEUTROPHILS 83.7 %; NEUTROPHILS ABSOLUTE 19.67 10/3/uL (2.02-8.40); PLATELET COUNT 183 10/3/uL (150-400); RBC DISTRIBUTION WIDTH 14.5 % (12.0-16.0); RED CELL COUNT 3.69 10/6/uL (4.0-5.6); WHITE BLOOD CELLS 23.5 10/3/uL (4.5-10.5)
[2016-10-27 04:21] LABS: MANUAL DIFF NO %
[2016-10-27 04:33] LABS: CALCIUM, SERUM 8.9 MG/DL (8.5-10.4); CHLORIDE, SERUM 111 MMOL/L (96-112); CO2 (CARBON DIOXIDE) 22 MMOL/L (24-34); CREATININE 1.12 MG/DL (0.55-1.02); GFR AFRICAN AMERICAN 58 ML/MIN (>=60); GFR NON AFRICAN AMERICAN 50 ML/MIN (>=60); POTASSIUM, SERUM 4.4 MMOL/L (3.5-5.3); SODIUM, SERUM 143 MMOL/L (135-148)
[2016-10-27 04:35] LABS: BUN (BLOOD UREA NITROGEN) 30 MG/DL (6-23); GLUCOSE, SERUM 140 MG/DL (60-99)
[2016-10-28 05:02] LABS: BASOPHILS 0.3 %; BASOPHILS ABSOLUTE 0.04 10/3/uL (0.0-0.16); EOSINOPHILS 1.5 %; EOSINOPHILS ABSOLUTE 0.21 10/3/uL (0.0-0.53); HEMATOCRIT 30.4 % (36.0-48.0); IMMATURE GRANULOCYTES 0.4 %; IMMATURE GRANULOCYTES ABSOLUTE 0.05 10/3/uL (0.0-0.11); LYMPHOCYTES ABSOLUTE 2.19 10/3/uL (0.67-4.30); MEAN CORPUS HGB CONC 32.9 g/dL (32.0-36.0); MEAN CORPUSCULAR HEMOGLOB 29.2 pg (26.0-34.0); MEAN CORPUSCULAR VOLUME 88.6 fL (80-100); MEAN PLATELET VOLUME 10.9 fL (9.2-13.0); MONOCYTES 9.6 %; MONOCYTES ABSOLUTE 1.31 10/3/uL (0.21-1.20); NEUTROPHILS 72.2 %; NEUTROPHILS ABSOLUTE 9.89 10/3/uL (2.02-8.40); PLATELET COUNT 165 10/3/uL (150-400); RBC DISTRIBUTION WIDTH 14.4 % (12.0-16.0); RED CELL COUNT 3.43 10/6/uL (4.0-5.6)
[2016-10-28 05:04] LABS: MANUAL DIFF NO %; WHITE BLOOD CELLS 13.7 10/3/uL (4.5-10.5)
[2016-10-28 05:13] LABS: BUN (BLOOD UREA NITROGEN) 30 MG/DL (6-23); CALCIUM, SERUM 8.7 MG/DL (8.5-10.4); CHLORIDE, SERUM 108 MMOL/L (96-112); CO2 (CARBON DIOXIDE) 23 MMOL/L (24-34); CREATININE 1.13 MG/DL (0.55-1.02); GFR AFRICAN AMERICAN 57 ML/MIN (>=60); GFR NON AFRICAN AMERICAN 49 ML/MIN (>=60); GLUCOSE, SERUM 149 MG/DL (60-99); SODIUM, SERUM 141 MMOL/L (135-148)
[2016-10-28 05:17] LABS: POTASSIUM, SERUM 3.4 MMOL/L (3.5-5.3)
[2016-10-29 05:25] LABS: CALCIUM, SERUM 8.4 MG/DL (8.5-10.4); CHLORIDE, SERUM 107 MMOL/L (96-112); CO2 (CARBON DIOXIDE) 25 MMOL/L (24-34); CREATININE 0.95 MG/DL (0.55-1.02); GFR AFRICAN AMERICAN 70 ML/MIN (>=60); GFR NON AFRICAN AMERICAN 61 ML/MIN (>=60); POTASSIUM, SERUM 3.9 MMOL/L (3.5-5.3); SODIUM, SERUM 141 MMOL/L (135-148)
[2016-10-29 05:27] LABS: BUN (BLOOD UREA NITROGEN) 25 MG/DL (6-23); GLUCOSE, SERUM 103 MG/DL (60-99)
[2016-10-29 05:38] LABS: BASOPHILS 0.3 %; BASOPHILS ABSOLUTE 0.03 10/3/uL (0.0-0.16); EOSINOPHILS 2.4 %; EOSINOPHILS ABSOLUTE 0.23 10/3/uL (0.0-0.53); HEMATOCRIT 29.1 % (36.0-48.0); HEMOGLOBIN 9.7 g/dL (12.0-16.0); IMMATURE GRANULOCYTES 0.3 %; IMMATURE GRANULOCYTES ABSOLUTE 0.03 10/3/uL (0.0-0.11); LYMPHOCYTES 20.1 %; LYMPHOCYTES ABSOLUTE 1.91 10/3/uL (0.67-4.30); MEAN CORPUS HGB CONC 33.3 g/dL (32.0-36.0); MEAN CORPUSCULAR HEMOGLOB 29.5 pg (26.0-34.0); MEAN CORPUSCULAR VOLUME 88.4 fL (80-100); MEAN PLATELET VOLUME 10.8 fL (9.2-13.0); MONOCYTES 9.8 %; MONOCYTES ABSOLUTE 0.93 10/3/uL (0.21-1.20); NEUTROPHILS 67.1 %; NEUTROPHILS ABSOLUTE 6.35 10/3/uL (2.02-8.40); PLATELET COUNT 163 10/3/uL (150-400); RBC DISTRIBUTION WIDTH 14.1 % (12.0-16.0); RED CELL COUNT 3.29 10/6/uL (4.0-5.6); WHITE BLOOD CELLS 9.5 10/3/uL (4.5-10.5)
[2016-10-29 05:41] LABS: MANUAL DIFF NO %
[2017-01-31] MEDS ORDERED: LIPITOR40 PO (13:09)
[2017-01-31] MEDS ORDERED: L20 PO (13:10)
[2017-01-31] MEDS ORDERED: COREG6 PO (13:11)
[2017-01-31] MEDS ORDERED: ASAB PO (13:12)
[2017-01-31] MEDS ORDERED: KLOR-CON M2020 MEQ PO ×2 (13:12→20:22)
[2017-01-31] MEDS ORDERED: PEPCID40 MG PO ×2 (13:13→20:20)
[2017-01-31] MEDS ORDERED: NEUR300 (13:13)
[2017-01-31] MEDS ORDERED: PRIN2.5 PO (13:14)
[2017-01-31] MEDS ORDERED: NEUR300 PO (13:14)
[2017-01-31] MEDS ORDERED: HALF81 PO (20:16)
[2017-01-31] MEDS ORDERED: LIPITOR20 PO (20:16)
[2017-01-31] MEDS ORDERED: SIN-CR PO (20:18)
[2017-01-31] MEDS ORDERED: L40 PO ×2 (20:21)
[2017-02-01] MEDS ORDERED: KDUR20 PO (10:03)
[2017-02-01] MEDS ORDERED: L40 PO (10:03)
== END 2016-10-29 12:46 | DRG 233 ==
LOC: 6NO 16:45 → CVICU 10-25 16:15 → 5NO 10-26 12:45
PROVIDERS: Internal Medicine Cardiovascular Disease; Thoracic Surgery (Cardiothoracic Vascular Surgery)
PROC: 4A023N7 Measurement of Cardiac Sampling and Pressure, Left Heart, Percutaneous Approach (ICD-10-PCS; principal; 2016-10-24)
PROC: 021109W Bypass Coronary Artery, Two Arteries from Aorta with Autologous Venous Tissue, Open Approach (ICD-10-PCS; 2016-10-24)
PROC: B2111ZZ Fluoroscopy of Multiple Coronary Arteries using Low Osmolar Contrast (ICD-10-PCS; 2016-10-24)
PROC: B2151ZZ Fluoroscopy of Left Heart using Low Osmolar Contrast (ICD-10-PCS; 2016-10-24)
PROC: 02100Z9 Bypass Coronary Artery, One Artery from Left Internal Mammary, Open Approach (ICD-10-PCS; 2016-10-24)
PROC: 06BP0ZZ Excision of Right Saphenous Vein, Open Approach (ICD-10-PCS; 2016-10-25)
PROC: 5A1221Z Performance of Cardiac Output, Continuous (ICD-10-PCS; 2016-10-25)
PROC: B246ZZ4 Ultrasonography of Right and Left Heart, Transesophageal (ICD-10-PCS; 2016-10-25)
DX: I21.4 Non-ST elevation (NSTEMI) myocardial infarction (principal); I50.21 Acute systolic (congestive) heart failure; E87.0 Hyperosmolality and hypernatremia; G20 Parkinson's disease; E66.01 Morbid (severe) obesity due to excess calories; E11.9 Type 2 diabetes mellitus without complications; Z79.82 Long term (current) use of aspirin; Z79.899 Other long term (current) drug therapy; Z82.49 Family history of ischemic heart disease and other diseases of the circulatory system; Z68.39 Body mass index [BMI] 39.0-39.9, adult; E78.00 Pure hypercholesterolemia, unspecified; I11.0 Hypertensive heart disease with heart failure; Z90.49 Acquired absence of other specified parts of digestive tract; Z98.2 Presence of cerebrospinal fluid drainage device
CPT/HCPCS: 36415; 71010; 80048; 80053; 80061; 81001; 82330; 82803; 82805; 82947; 82962; 83036; 83735; 84132; 84295; 84460; 84484; 85014; 85018; 85025; 85049; 85347; 85610; 85730; 86850; 86900; 86901; 86920; 87641; 93005; 93312; 93320; 93325; 93458; 93880; 94002; 94640; 94660; 94770; 96365; 96366; 96375; 97162-GP; 99152; 99153; 99291; A9270-GY; C1713; C1769; C1887; C1894; C8929; G8978-CL-GP; G8979-CI-GP; J0690; J1644; J1940; J2150; J2250; J2370; J2440; J2720; J2930; J3010; J3475; J3480; P9045; P9047; Q9957; Q9967